=== PATIENT | female | born 1950 | race Caucasian/White ===

== ENCOUNTER → 2023-07-18 | Outpatient (CLI) | payer OTHER ==
[~2023-07-18] MED LIST: ALBU6.7H14 IH; ATEN50TA PO; DOXA4TAB3 PO; HYDR25TA PO; LEVO112T7 PO; LOSA100T59 PO; SERT-439 PO; SIME125C81 PO; [UNRECOGNIZED DRUG - CODE] PO
== END | disposition home or self-care (01) ==
LOC: RAH 13:51
PROVIDERS: ATTEND Internal Medicine Cardiovascular Disease
DX: Z13.6 Encounter for screening for cardiovascular disorders (principal); E78.2 Mixed hyperlipidemia
CPT/HCPCS: 75571